=== PATIENT | male | born 1965 | race Caucasian/White ===

== ENCOUNTER 2017-01-11 09:01 | Outpatient (CLI) ==
[2016-08-31 20:38] VITALS: BMI 38.3
--- NOTE | 2017-01-11 11:35 | MAMMO ---
EXAM: Digital diagnostic mammogram and left breast ultrasound HISTORY: Left breast mass COMPARISON: None FINDINGS: MLO and CC views of the right and left breast were performed. There is trace bilateral gy necomastia. There is no evidence for mass, asymmetry, distortion, or suspicious calcifications in e ither breast. Ultrasound left breast was performed in the region of clinical concern in the left medial breast reg ion near midline. No focal sonographic abnormality is identified. No mass or cyst identified. IMPRESSION: 1. Bilateral gynecomastia. This finding is benign. 2. No mammographic evidence for malignancy in the right or left breast. Negative left breast ultra sound in the region of clinical concern. 3. Recommend clinical follow-up. BIRADS category 2, benign
== END 2017-01-11 09:02 | disposition home or self-care (01) ==
LOC: RAD 09:01
PROVIDERS: ATTEND Family Medicine
DX: N63 Unspecified lump in breast (principal)

== ENCOUNTER 2017-01-17 18:28 | Outpatient (CLI) ==
[2016-08-31 20:38] VITALS: BMI 38.3
[2017-01-17 18:58] LABS: CREATININE 0.98 mg/dL (0.60-1.10)
== END 2017-01-17 18:29 | disposition home or self-care (01) ==
LOC: LAB 18:28
PROVIDERS: ATTEND Family Medicine
DX: Z01.812 Encounter for preprocedural laboratory examination (principal)
CPT/HCPCS: 36415; 82565

== ENCOUNTER 2017-01-18 07:50 | Outpatient (CLI) ==
[2016-08-31 20:38] VITALS: BMI 38.3
--- NOTE | 2017-01-18 09:22 | CT ---
EXAM: CT of the chest with and without contrast History: Chest wall mass. Comparison: Chest radiograph 06/24/2008 Technique: Multiplanar CT images through the thorax were obtained with and without the administrati on of IV contrast Findings: Heart size is normal. No pericardial effusion. No pathologic thoracic adenopathy. A few small calcified bilateral hilar lymph nodes. No consolidation. Mild dependent atelectasis. No susp icious lung masses or lung nodules. A few tiny 2 mm bilateral lung nodules. Subtle ground-glass opa [place] within the medial right lower lobe. No chest wall masses. Within the visualized upper abdomen, fatty liver. 2 mm left renal calculus. No acute osseous abnor malities. A few prominent anterior osteophytes within the mid thoracic spine. Impression: 1. No chest wall masses. 2. Subtle ground-glass opacity within the medial right lower lobe probably represents a mild infect ious or inflammatory process. 3. Old granulomatous disease. 4. Fatty liver.
== END 2017-01-18 07:51 | disposition home or self-care (01) ==
LOC: RAD 07:50
PROVIDERS: ATTEND Family Medicine
DX: R22.2 Localized swelling, mass and lump, trunk (principal)

== ENCOUNTER 2017-02-08 08:38 | Inpatient (IN) ==
[2017-02-08] MEDS ORDERED: SODIUM CHLORIDE 1,000 ML IV STA (08:50)
[2017-02-08] MEDS ORDERED: NITROSTAT SL PRN (08:50)
--- NOTE | 2017-02-08 08:51 | ED.PDOC ---
General ED Provider: Dr. ERMELINDA KHAN JR Chief Complaint: Chest Pain Stated Complaint: CHEST TIGHTNESS. MIDSTERNAL THROUGH TO BACK [ End ]98.2 82 16 98% 125/102 03/31 mother with [place] months ago-September 2016 maternal first cousin with [place] Time Seen by Physician: 08:51 Mode of Arrival: Walk-In Information Source: Patient Exam Limitations: No limitations Primary Care Provider: HANG DAWSON Nursing and Triage Documentation Reviewed and Agree: No Review of Systems - Review Of Systems Constitutional: Reports: No symptoms Eyes: Reports: No symptoms Ears, Nose, Mouth, Throat: Reports: No symptoms Respiratory: Reports: No symptoms Cardiac: Reports: Chest pain (lest sided pressure only no pain no tenderness abdomen or infracostal area) GI: Reports: No symptoms : Reports: No symptoms Musculoskeletal: Reports: No symptoms Skin: Reports: No symptoms Neurological: Reports: No symptoms Endocrine: Reports: No symptoms Hematologic/Lymphatic: Reports: No symptoms All Other Systems: Other Past Medical History - Past Medical History Endocrine: Reports: None Cardiovascular: Reports: Hypertension Respiratory: Reports: None Hematological: Reports: None Gastrointestinal: Reports: GERD Genitourinary: Reports: None Neuro/Psych: Reports: None. Denies: Migraine Musculoskeletal: Reports: None Cancer: Reports: None Other Pertinent Past Medical History: vascectomy 2004--back surg 07/16/16 htn - Surgical History General Surgical History: Reports: Back Surgery (back surg 07/16/16 ), Other ( Vasectomy 2004 ) - Family History Family History: Reports: Unknown - Social History Smoking Status: Never smoker Hx Substance Use: No Alcohol Screening: None Physical Exam - Physical Exam Appearance: Well-appearing, Obese Pain Distress: Moderate Eyes: POLO, EOMI, Conjunctiva clear ENT: Ears normal, Nose normal, Oropharynx normal Neck: Supple Respiratory: Airway patent Cardiovascular: RRR, Pulses normal, No rub, No murmur GI/: Soft, Nontender, No masses, Bowel sounds normal, No Organomegaly Musculoskeletal: Normal strength, ROM intact, No edema, No calf tenderness Skin: Warm, Dry, Normal color Neurological: Sensation intact, Motor intact, Reflexes intact, Cranial nerves intact, Alert, Oriented Psychiatric: Affect appropriate, Mood appropriate Interpretation - Radiology Interpretation Radiology Interpretation By: Radiologist Radiology Results: Negative Exam Interpreted: CXR - EKG Interpretation Time of EKG #1: 09:00 Rate: Normal Rhythm: Sinus Ectopy: None [place]: NL ST Segment: Normal Re-Evaluation - Re-Evaluation Time of Re-Evaluation: 09:38 Status: Unchanged (headache now) Critical Care Note - Critical Care Note Total Time (mins): 0 Course - Course Hematology/Chemistry: 02/08/17 09:00 02/08/17 09:00 Orders, Labs, Meds: Lab Review 02/08/17 09:00 WBC 4.78 RBC 4.93 Hgb 13.8 L Hct 40.2 L MCV 81.5 MCH 28.0 MCHC 34.3 RDW Coeff of [place] 13.4 Plt Count 175 Immature Gran % (Auto) 0.8 Neut % (Auto) 58.9 Lymph % (Auto) 27.6 [place] % (Auto) 9.2 Eos % (Auto) 2.7 Baso % (Auto) 0.8 Immature Gran # (Auto) 0.0 Neut # 2.8 Lymph # 1.3 [place] # 0.4 Eos # 0.1 Baso # 0.0 D-Dimer 1.27 Sodium 138 Potassium 3.9 Chloride 106 Carbon Dioxide 24 Anion Gap 11.9 BUN 9 Creatinine 0.84 Estimated GFR (MDRD) 96.00 BUN/Creatinine Ratio 10.71 Glucose 114 H Calcium 8.9 Total Bilirubin 0.72 AST 15 ALT 24 Alkaline Phosphatase 103 Total Creatine Kinase 158 CK-MB (CK-2) 1.7 CK-MB (CK-2) % 1.81224 Troponin I < 0.0100 B-Natriuretic Peptide < 10 Total Protein 6.8 Albumin 3.8 Globulin 3.0 Albumin/Globulin Ratio 1.27 Orders Category Date Time Status EKG-(ED ONLY) Stat CARDIO 02/08/17 08:50 Completed ED CLINICAL MEDICAL TRANSCRIPTIONIST APPLIED .ONCE EMERGENCY 02/08/17 08:50 Active ED IV/MEDIPORT/POWERPORT .ONCE EMERGENCY 02/08/17 08:50 Active B-TYPE NATRIURETIC PEPTIDE Stat LAB 02/08/17 09:00 Completed CBC W/ AUTO DIFF Stat LAB 02/08/17 09:00 Completed COMPREHENSIVE METABOLIC PANEL Stat LAB 02/08/17 09:00 Completed CREATINE KINASE Stat LAB 02/08/17 09:00 Completed D-DIMER Stat LAB 02/08/17 09:00 Completed TROPONIN I Stat LAB 02/08/17 09:00 Completed 0.9 % Sodium Chloride [Saline Flush] MEDS 02/08/17 08:50 Active 1 syr IVF PRN PRN Acetaminophen [Tylenol] MEDS 02/08/17 09:36 Discontinued 650 mg PO ONCE STA Morphine Sulfate [Morphine 2 mg/ml Syringe] MEDS 02/08/17 09:36 Discontinued 2 mg IVP ONCE STA Nitroglycerin [Nitrostat] MEDS 02/08/17 08:50 Active 0.4 mg SL Q5MIN X 3 DOSES PRN Sodium Chloride 0.9% [Sodium Chloride] 1,000 ml MEDS 02/08/17 08:50 Active IV 100 mls/hr CHEST, 1V AP ONLY Stat RADS 02/08/17 08:50 Completed Medications Generic Name Dose Route Start Last Admin Trade Name Freq PRN Reason Stop Dose Admin Sodium Chloride 1,000 mls @ 100 mls/hr 02/08/17 08:50 02/08/17 09:49 Sodium Chloride IV 02/08/17 18:49 100 mls/hr .Q10H STA Administration Sodium Chloride 1,000 mls @ 75 mls/hr 02/08/17 11:00 Sodium Chloride IV .[id number] CARLO Nitroglycerin 0.4 mg 02/08/17 08:50 02/08/17 09:11 Nitrostat SL 0.4 mg Q5MIN X 3 DOSES PRN Administration Chest Pain Sodium Chloride 1 syr 02/08/17 08:50 Saline Flush IVF PRN PRN To flush IV Discontinued Medications Generic Name Dose Route Start Last Admin Trade Name Frealvaro PRN Reason Stop Dose Admin Acetaminophen 650 mg 02/08/17 09:36 02/08/17 09:52 Tylenol PO 02/08/17 09:37 650 mg ONCE STA Administration Morphine Sulfate 2 mg 02/08/17 09:36 02/08/17 09:49 Morphine 2 Mg/Ml Syringe IVP 02/08/17 09:37 2 mg ONCE STA Administration Pantoprazole Sodium 40 mg 02/08/17 10:45 Protonix Iv IVP 02/08/17 10:46 ONCE STA Vital Signs: Temp Pulse Resp BP Pulse Ox 02/08/17 08:45 98.2 F 82 16 125/102 H 98 VIKAS Risk Score VIKAS Risk Score: Risk Score Odds of by 30D 0 0.1 (0.1-0.2) 1 0.3 (0.2-0.3) 2 0.4 (0.3-0.5) 3 0.7 (0.6-0.9) 4 1.2 (1.0-1.5) 5 2.2 (1.9-2.6) 6 3.0 (2.5-3.6) 7 4.8 (3.8-6.1) Departure - Departure Time of Disposition: 09:52 Disposition: ADMITTED INPATIENT Discharge Problem: Chest pain Condition: Good Pt referred to PMD for follow-up: Yes Allergies/Adverse Reactions: Allergies No Known Allergies Allergy (Unverified 02/08/17 08:41) Home Medications: Ambulatory Orders Tramadol HCl [Ultram] 50 mg PO DAILY PRN 04/17/14 Lisinopril 40 mg PO d 05/29/16 Hydrocodone Bit/Acetaminophen [Knott 5-325] 1 tab PO TID PRN 08/31/16 Tizanidine HCl [Zanaflex] 2 mg PO BID PRN 08/31/16 Bumetanide 0.5 mg PO DAILY 10/05/16 Pregabalin [Lyrica] 25 mg PO BID 02/08/17
[2017-02-08 09:01] LABS: BASOPHILS % (AUTO) 0.8 % (0.0-3.0); EOSINOPHILS # (AUTO) 0.1 K/ul (0.0-0.7); EOSINOPHILS % (AUTO) 2.7 % (0.0-7.0); HEMATOCRIT 40.2 % (42.0-52.0); HEMOGLOBIN 13.8 g/dl (14.0-18.0); IMMATURE GRANULOCYTE % (AUTO) 0.8 % (0.0-5.0); LYMPHOCYTES # (AUTO) 1.3 K/uL (0.60-3.4); LYMPHOCYTES % (AUTO) 27.6 (10.0-50.0); MEAN CORPUSCULAR HGB CONC 34.3 (31.8-35.4); MEAN CORPUSCULAR VOLUME 81.5 fl (80.0-94.0); MONOCYTES # (AUTO) 0.4 K/uL (0.4-2.0); MONOCYTES % (AUTO) 9.2 (0-10); NEUTROPHILS # (AUTO) 2.8 K/ul (2.0-6.9); NEUTROPHILS % (AUTO) 58.9; PLATELET COUNT 175 10^3/uL (140-440); RED BLOOD COUNT 4.93 10^6/ul (4.70-6.10); WHITE BLOOD COUNT 4.78 K/ul (4.2-10.2)
--- NOTE | 2017-02-08 09:14 | DI ---
EXAM: Single view of the chest. History: Chest pain. Comparison: Chest CT 02/15/2017 Findings: Heart size is normal. No focal consolidation. No appreciable pleural fluid and no pneum othorax. No acute osseous abnormalities. Impression: No acute cardiopulmonary process.
[2017-02-08] MEDS ORDERED: TYLENOL PO STA (09:36)
[2017-02-08] MEDS ORDERED: MORPHINE 2 MG/ML SYRINGE IVP STA (09:36)
[2017-02-08 09:39] LABS: ALANINE AMINOTRANSFERASE 24 U/L (12-78); ALBUMIN 3.8 g/dL (3.4-5.0); ALBUMIN/GLOBULIN RATIO 1.27; ALKALINE PHOSPHATASE 103 U/L (50-136); ANION GAP 11.9; ASPARTATE AMINO TRANSFERASE 15 U/L (15-37); BILIRUBIN,TOTAL 0.72 mg/dL (0.00-1.20); BLOOD UREA NITROGEN 9 mg/dL (7-18); BUN/CREATININE RATIO 10.71; CALCIUM 8.9 mg/dL (8.2-10.2); CARBON DIOXIDE 24 mmol/L (21-32); CHLORIDE 106 mmol/L (98-107); CREATINE KINASE 158 U/L; CREATININE 0.84 mg/dL (0.60-1.10); GLUCOSE 114 mg/dL (70-100); POTASSIUM 3.9 mmol/L (3.5-5.1); SODIUM 138 mmol/L (136-145); TOTAL PROTEIN 6.8 g/dL (6.4-8.2)
[2017-02-08 09:41] LABS: CREATINE KINASE MB 1.7 ng/ml (0.0-3.6)
[2017-02-08] MEDS ORDERED: PROTONIX IV IVP STA (10:45)
[2017-02-08] MEDS ORDERED: ULTRAM PO PRN (10:52)
[2017-02-08] MEDS ORDERED: NON-FORMULARY MEDICATION (Tizanidine Hcl [Zanaflex] 2 MG) PO PRN (10:52)
[2017-02-08] MEDS ORDERED: ZANAFLEX PO PRN (11:00)
[2017-02-08] MEDS ORDERED: NON-FORMULARY MEDICATION (Lisinopril [Lisinopril] 40 MG) PO SCH (11:00)
[2017-02-08 11:10] VITALS: BMI 39.4
[2017-02-08] MEDS: ZESTRIL PO SCH (12:40)
[2017-02-08] MEDS ORDERED: TORADOL IVP STA (13:41)
[2017-02-08] MEDS ORDERED: DECADRON 4 MG/ML SDV IM STA (13:41)
[2017-02-08 14:58] LABS: CHOL/HDL RATIO 5.1 (4.5-6.4)
[2017-02-08] MEDS: SODIUM CHLORIDE 1,000 ML IV SCH ×2 (16:41→19:23)
[2017-02-08 17:24] LABS: CREATINE KINASE 138 U/L
[2017-02-08 17:27] LABS: CREATINE KINASE MB 1.6 ng/ml (0.0-3.6)
[2017-02-08] MEDS: LYRICA PO SCH (20:14)
[2017-02-08] MEDS ORDERED: NON-FORMULARY MEDICATION (Pregabalin [Lyrica] 100 MG) PO SCH (21:00)
[2017-02-08] MEDS ORDERED: NON-FORMULARY MEDICATION (Pregabalin 25 MG) PO SCH (21:00)
[2017-02-08] MEDS ORDERED: LYRICA PO SCH (21:00)
[2017-02-08] MEDS: NORCO 5-325 PO PRN (22:40)
[2017-02-09 01:28] LABS: ALBUMIN 3.6 g/dL (3.4-5.0); ALBUMIN/GLOBULIN RATIO 1.16; ANION GAP 10.2; BILIRUBIN,TOTAL 0.48 mg/dL (0.00-1.20); BUN/CREATININE RATIO 11.88; CREATININE 1.01 mg/dL (0.60-1.10); POTASSIUM 5.2 mmol/L (3.5-5.1); TOTAL PROTEIN 6.7 g/dL (6.4-8.2)
[2017-02-09 01:29] LABS: BASOPHILS # (AUTO) 0.1 K/uL (0-0.2); BASOPHILS % (AUTO) 0.8 % (0.0-3.0); HEMATOCRIT 40.5 % (42.0-52.0); HEMOGLOBIN 13.8 g/dl (14.0-18.0); IMMATURE GRANULOCYTE % (AUTO) 1.6 % (0.0-5.0); LYMPHOCYTES # (AUTO) 0.6 K/uL (0.60-3.4); LYMPHOCYTES % (AUTO) 8.7 (10.0-50.0); MEAN CORPUSCULAR HGB CONC 34.1 (31.8-35.4); MEAN CORPUSCULAR VOLUME 82.3 fl (80.0-94.0); MONOCYTES # (AUTO) 0.2 K/uL (0.4-2.0); MONOCYTES % (AUTO) 2.6 (0-10); NEUTROPHILS # (AUTO) 6.4 K/ul (2.0-6.9); NEUTROPHILS % (AUTO) 86.3; PLATELET COUNT 186 10^3/uL (140-440); RED BLOOD COUNT 4.92 10^6/ul (4.70-6.10); WHITE BLOOD COUNT 7.39 K/ul (4.2-10.2)
[2017-02-09 01:34] LABS: CREATINE KINASE 113 U/L
[2017-02-09] MEDS ORDERED: BUMEX PO SCH ×2 (06:30→09:00)
[2017-02-09] MEDS: SODIUM CHLORIDE 1,000 ML IV SCH (07:58)
[2017-02-09] MEDS: NORCO 5-325 PO PRN (07:58)
[2017-02-09] MEDS: LYRICA PO SCH (08:26)
[2017-02-09] MEDS: ZESTRIL PO SCH (08:26)
[2017-02-09] MEDS ORDERED: NON-FORMULARY MEDICATION (Bumetanide [Bumetanide] 0.5 MG) PO SCH (09:00)
[2017-02-09 09:59] VITALS: BP 117/70; TEMP 97.5
--- NOTE | 2017-02-09 13:32 | STRESSECHO ---
Date of Test: 02/09/17 Ordering Physician: HANG DAWSON Current Medications: LYRICA, ULTRAM, ZANAFLEX, LISINOPRIL, NORCO, BUMETANIDE Physical Findings: S1, S2, NO S3 Resting EKG: SINUS RHYTHM/ NO ACUTE CHANGES Target Heart Rate: 143/169 STAGE MPH/GRADE HEART RATE BPM BLOOD PRESSURE mmhg RHYTHM S-T SEGMENT +/- UP DOWN SYMPTOMS,COMMENTS At Rest 78 132/86 SR X NONE 1 1.7/10% 125 152/72 SR X NONE 2 2.5/12% 135 148/70 SR X NONE 3 3.4/14% 4 4.2/16% 5 5.0/18% Immediately after 146 S4 X SHORT OF BREATH Durations of Exercise: 6:21 Maximum Heart Rate Reached: 147 Reason for Termination: SHORT OF BREATH 5 MIN POST EXERCISES: BP 156/68 MMHG, SINUS RHYTHM, +/- INTERPRETATION: 97% OXYGEN SATURATION ON ROOM AIR WITH EXERCISE METS 8.0 1. NO EVIDENCE OF ISCHEMIA BY ST-T WAVE 2. NO CHEST PAIN OR CHEST DISCOMFORT 3. BLOOD PRESSURE RESPONSE NORMAL 4. NO ARRHYTHMIAS NORMAL LEFT VENTRICULAR CONTRACTILITY--RESTING AND POST EXERCISE MTDD
--- NOTE | 2017-02-09 13:34 | ECHOSTRESS ---
Date of Exam: 02/09/17 Ordering Physician: HANG DAWSON Reason for Echo: CHEST PAIN, STRESS TEST--NO ISCHEMIA M-Mode Normal Adult Results LV Dimensions Normal Adult Results AoV Opening excursions >1.6 LVEDD-base- 3.5-5.8 Ao root dimensions 2.0-3.7 LVESD-base- 3.1-4.6 L. Atrium dimensions 1.9-3.8 Post. Wall thickness 0.8-1.1 IV septum (thickness) 0.7-1.2 Post. Wall excursion 0.72-1.3 Septal motion Systolic motion R. Ventricular cavity 1.5-2.0 LVEF 60% Paradoxical septal wall motion 2-D: NORMAL LEFT VENTRICULAR CONTRACTILITY--RESTING AND POST EXERCISE M-MODE: MV: AV: TV: PV: CHAMBER SIZE: WALL MOTION: NORMAL LEFT VENTRICULAR CONTRACTILITY--RESTING AND POST EXERCISE PERICARDIUM: INTERPRETATION: 1. NORMAL LEFT VENTRICULAR CONTRACTILITY--RESTING AND POST EXERCISE MTDD
--- NOTE | 2017-02-10 10:24 | CONS ---
DATE OF SERVICE: 02/09/17 CONSULT FOLLOWUP DATE OF CONSULTATION: 02/09/17 REASON FOR CONSULTATION: 51-year-old white male hospitalized with chest pain, chest tightness steady for at least one week, unrelated to exertion. No other symptoms like sweating or shortness of breath. The patient also had no radiation of pain to any other part of the body. He said at times it may go to the neck, both sides. REVIEW OF SYSTEMS: CONSTITUTIONAL: No night sweats. No fatigue, malaise, lethargy. No fever or chills. HEENT: Eyes: No visual changes. No eye pain. No eye discharge. ENT: No runny nose. No epistaxis. No sinus pain. No sore throat. No odynophagia. No ear pain. No congestion. No neck pain. RESPIRATORY: No cough, no congestion. No hemoptysis. CARDIOVASCULAR: No angina symptoms. No CHF symptoms. No atypical chest pain for CAD. No palpitations. No shortness of breath. No PND, no orthopnea. GASTROINTESTINAL: No abdominal pain. No nausea or vomiting. No diarrhea or constipation. No hematemesis. No hematochezia. GENITOURINARY: No urgency. No frequency. No dysuria. No hematuria. No obstructive symptoms. No discharge. No pain. No significant abnormal bleeding. MUSCULOSKELETAL: No musculoskeletal pain. No joint swelling. NEUROLOGICAL: No headache. No neck pain. No syncope. No seizures. No dizziness. PSYCHIATRIC: Not anxious. No depression. No suicidal thoughts. No homicidal thoughts. SKIN: No rash. No lesions. No wounds. ENDOCRINE: No unexplained weight loss. No weight gain. HEMATOLOGIC/LYMPHATIC: No anemia. No purpura. No petechiae. No prolonged or excessive bleeding. No palpable lymph nodes. PHYSICAL EXAMINATION: GENERAL: The patient is oriented to time, place and person. VITAL SIGNS: Temperature 96.8, pulse 68, respiratory rate 16, BP 100/58, pulse ox 100% on room air. HEENT: Head normocephalic, atraumatic. Eyes: Extraocular muscles are intact. Pupils are equal, round and reactive to light and accommodation. Ears: No lesions. Nose appeared normal. Throat: No exudate or erythema. NECK: Supple. No JVP, no carotid bruit. No lymphadenopathy or thyromegaly. LUNGS: Decreased breath sounds. Clear to auscultation. Percussion note normal. Chest symmetrical. HEART: S1, S2, no S3. No murmurs. No cyanosis or clubbing. No ascites. Pulses: Dorsalis pedis and posterior tibial pulses +1 to +2 both sides. ABDOMEN: Soft. Nontender. Bowel sounds active. No CVA tenderness. No mass felt. EXTREMITIES: No pedal edema. Full range of motion of all extremities, equal. NEUROLOGIC: No focal deficit. Cranial nerves II through XII are grossly intact. No headache, no double vision or headache. SKIN: Not dry. Intact. Turgor - normal. LYMPHATIC: No palpable lymph nodes/no lymphedema. MUSCULOSKELETAL: Normal joints with no swelling. Muscle tone is normal. LAB DATA: Hemoglobin 13.8, hematocrit 40, WBC 7,300, normal differential. Creatinine 1, BUN 12, potassium 5.2. BNP less than 10. CK-MB negative. Troponin was initially positive. D. dimer negative. ASSESSMENT: 1. Chest pain seems to be noncardiac by etiology. The patient has several risk factors like sedentary lifestyle, morbid obesity, borderline dyslipidemia, hypertension. PLAN: The patient had an echocardiogram done which showed normal LV contractility, normal valves. The patient's stress echo on regular [place] protochol was negative for ischemia. The patient's LV contractility normal at rest and normal post exercise. CONCLUSION: The patient's chest pain seems to be noncardiac considering negative EKGs, negative cardiac markers, negative stress echo, negative echo. Telemetry strips were examined which are sinus rhythm with no ST-T wave changes. Counseling done for losing weight, keep blood pressure 130/80 or under. Followup with primary care. Non HDL goal should be 100. The patient's non HDL score is 140. Diet with weight loss, low cholesterol diet and maybe Statin, low dose, should be able to attain the goal. All copies sent to Dr. Nuñez, echo, stress echo, etc. MTDD
--- NOTE | 2017-02-10 10:38 | CONS ---
DATE OF CONSULTATION: 02/08/17 REASON FOR CONSULTATION: Chest tightness. HISTORY OF PRESENT ILLNESS: 51-year-old white male came to the emergency room with tightness of chest, duration of 7 days, more or less constant. The patient is anxious. The patient' s mother had an [place] a few months ago. Maternal first cousin with history of [place]. REVIEW OF SYSTEMS: CONSTITUTIONAL: Fatigue and weakness with anxiousness. No night sweats. No fever or chills. HEENT: Eyes: No visual changes. No eye pain. No eye discharge. ENT: No runny nose. No epistaxis. No sinus pain. No sore throat. No odynophagia. No ear pain. No congestion. RESPIRATORY: No cough, no congestion. No hemoptysis. CARDIOVASCULAR: Chest tightness, center of chest, unrelated to exertion more or less constant. Duration 7 days. No PND, no orthopnea. GASTROINTESTINAL: No abdominal pain. No nausea or vomiting. No diarrhea or constipation. No hematemesis. No hematochezia. GENITOURINARY: No urgency. No frequency. No dysuria. No hematuria. No obstructive symptoms. No discharge. No pain. No significant abnormal bleeding. MUSCULOSKELETAL: No musculoskeletal pain. No joint swelling. NEUROLOGICAL: No headache. No neck pain. No syncope. No seizures. No dizziness. PSYCHIATRIC: Not anxious. No depression. No suicidal thoughts. No homicidal thoughts. SKIN: No rash. No lesions. No wounds. ENDOCRINE: No unexplained weight loss. No weight gain. HEMATOLOGIC/LYMPHATIC: No anemia. No purpura. No petechiae. No prolonged or excessive bleeding. No palpable lymph nodes. MEDICATIONS: Tramadol Lisinopril Hydrocodone Zanaflex Bumex Lyrica ALLERGIES: NKDA PAST MEDICAL/SURGICAL HISTORY: Hypertension DJD spine status post surgery Neuropathy BMI 39, almost morbid obesity SOCIAL/PERSONAL/FAMILY HISTORY: The patient is , lives with . Nonsmoker. No alcohol abuse. PHYSICAL EXAMINATION: GENERAL: The patient is oriented to time, place and person. VITAL SIGNS: Temperature 98, pulse 68, respiratory rate 20, BP 125/100, pulse ox 96%. HEENT: Head normocephalic, atraumatic. Eyes: Extraocular muscles are intact. Pupils are equal, round and reactive to light and accommodation. Ears: No lesions. Nose appeared normal. Throat: No exudate or erythema. NECK: Supple. No JVP, no carotid bruit. No lymphadenopathy or thyromegaly. LUNGS: Clear to auscultation. Percussion note normal. Chest symmetrical. HEART: S1, S2, no S3. No murmurs. No cyanosis or clubbing. No ascites. Pulses: Dorsalis pedis and posterior tibial pulses +1 to +2 both sides. ABDOMEN: Soft. Nontender. Bowel sounds active. No CVA tenderness. No mass felt. No ascites. EXTREMITIES: No pedal edema. No clubbing, no cyanosis. Full range of motion of all extremities, equal. NEUROLOGIC: No focal deficit. Cranial nerves II through XII are grossly intact. No headache, no double vision or headache. SKIN: Not dry. Intact. Turgor - normal. LYMPHATIC: No palpable lymph nodes/no lymphedema. MUSCULOSKELETAL: Normal joints with no swelling. Muscle tone is normal. EKG sinus rhythm. No acute changes. Telemetry sinus rhythm. No ST-T wave changes. ASSESSMENT: 1. CHEST PAIN, CHEST TIGHTNESS WITH RISK FACTORS OF OBESITY AND SEDENTARY LIFESTYLE, HYPERTENSION AND DYSLIPIDEMIA. THE PATIENT'S NON HDL CALCULATED IS APPROXIMATELY 140, WHICH WAS DONE TODAY. RECOMMENDATION: 1. Modification of CAD risk factors. 2. Discussed ASHD in detail. 3. Weight reducing diet discussed. 4. Will do echocardiogram. 5. Stress echo. 6. Blood pressure goal 135/85 or less. 7. DASH diet discussed. 8. I agree with present management with serial EKGs, cardiac markers. CONDITION: Stable. Thanks for the referral, will follow. MARTINE
--- NOTE | 2017-02-11 09:13 | ECHO2D ---
Date of Exam: 02/09/2017 Ordering Physician: DR. DAWSON Reason for Echo: CHEST TIGHTNESS M-Mode Normal Adult Results LV Dimensions Normal Adult Results AoV Opening excursions >1.6 >1.6 LVEDD-base- 3.5-5.8 4.9 Ao root dimensions 2.0-3.7 3.5 LVESD-base- 3.1-4.6 L. Atrium dimensions 1.9-3.8 3.8 Post. Wall thickness 0.8-1.1 1.1 IV septum (thickness) 0.7-1.2 1.1 Post. Wall excursion 0.72-1.3 NORMAL Septal motion NORMAL Systolic motion R. Ventricular cavity 1.5-2.0 NORMAL LVEF 60% 59% Paradoxical septal wall motion NORMAL 2-D :2-D M Mode Echocardiogram was performed using apical four chamber and left parasternal long and short axis views. Mitral, tricuspid and aortic valves appear to be normal. Contractility of the left ventricle seems to be normal, so is the cavity size. Left atrial cavity size and aortic root appear to be normal. There is no pericardial effusion. There is no thrombus noted in the left ventricular or left aortic cavity. No mitral valve prolapse noted. M-MODE: MV: NORMAL AV: NORMAL TV: NORMAL PV: CHAMBER SIZE: NORMAL WALL MOTION: NORMAL PERICARDIUM: NORMAL INTERPRETATION: 1. NORMAL 2D M MODE ECHOCARDIOGRAM MTDD
--- NOTE | 2017-03-18 09:28 | SSS ---
PRINCIPAL DIAGNOSIS: 1. Chest pain- noncardiac 2. Hypertension 3. Chronic back pain Principal procedure; stress echo consult Dr. Felix DISCUSSION: This is a 51 year old gentleman who presented to the emergency department with chest tightness. He has had chest tightness for few days, he has been under a lot of stress at work and dealing with a difficult co-worker and present with the above history. His initial EKG and cardiac enzymes were were unrevealing however because of risk factors the patient was admitted and we consulted Dr. Felix for cardiac evaluation. MEDICATIONS: Ultram Lisinopril [place] Zanaflex Bumex Lyrica ALLERGIES: No know drug allergies. PAST MEDICAL HISTORY: History of low back pain History of hypertension SURGICAL HISTORY: History of back surgery in June 2016 History of Vasectomy SOCIAL HISTORY: He is with two children. No history of alcohol or tobacco use as noted. FAMILY HISTORY: Unknown REVIEW OF SYSTEMS: No headaches, visual changes, tinnitus, hemoptysis, abdominal pain, blood in the stool, urinary symptoms or seizures. PHYSICAL EXAMINATION: VITAL SIGNS: Temperature 96.8, pulse 68 , respirations 16 and blood pressure 98/ 58. HEENT: Pupils are round. NECK: Supple. CHEST: Clear. CARDIOVASCULAR: Regular rate and rhythm. ABDOMEN: Soft, nontender. EXTREMITIES: Distal extremities without cyanosis or edema. CLINICAL COURSE: The patient was admitted to to services and again cardiac enzymes and EKG's were unrevealing. He was very kindly seen by Dr. Felix. Subsequent stress echo was unrevealing for ischemia at this point his chest pain was thought to be noncardiac and he was subsequently discharged. We are going to follow him up in the office. MARTINE
== END 2017-02-09 15:40 | disposition home or self-care (01) | DRG 313 ==
LOC: ED 08:38 → MEDSURG A 10:28
PROVIDERS: ADMIT Family Medicine; ATTEND Family Medicine
DX: R07.89 Other chest pain (principal); I10 Essential (primary) hypertension; E66.9 Obesity, unspecified; G89.29 Other chronic pain; M54.9 Dorsalgia, unspecified; K21.9 Gastro-esophageal reflux disease without esophagitis; Z82.49 Family history of ischemic heart disease and other diseases of the circulatory system; Z56.6 Other physical and mental strain related to work; Z72.3 Lack of physical exercise; Z79.899 Other long term (current) drug therapy
CPT/HCPCS: 36415; 80053; 80061; 82550; 82553; 83880; 84439; 84443; 84484; 85025; 85379; 93005; 93010; 96361; 96374; 96375; 99284

== ENCOUNTER 2017-03-01 12:37 | Outpatient (CLI) ==
--- NOTE | 2017-03-01 13:56 | CT ---
Exam: CT imaging of the lumbar spine without intravenous contrast administration. Comparison: 11/17/2016. Reason for exam: Arthrodesis, DDD FINDINGS: Pedicle screw and harjit construct with intervertebral body graft spacer is seen spanning L5 -S1 with decompressive laminectomy. There is no evidence of hardware complication or graft extrusion. Multilevel degenerative disc disease is seen throughout the lumbar spine with anterior osteophyte fo rmation. There is maintenance of the lumbar lordotic curve. T11-T12: Small broad-based disc bulge without significant impression on the thecal sac or foraminal narrowing. T12 - L1: Anterior osteophyte formation without significant disc bulge or foraminal narrowing. L1-L2: Anterior osteophyte formation without significant disc bulge or foraminal narrowing. L2-L3: Broad-based disc bulge without significant impression on the thecal sac. There is mild bila teral foraminal narrowing secondary to the disc protrusion. L3-L4: Broad-based, partially calcified disc bulge with minimal impression on the thecal sac and mi ld narrowing of the central canal with moderate foraminal narrowing secondary to a combination of ca lcified disc material and facet hypertrophy. L4-L5: Broad-based disc bulge without significant impression on the thecal sac or foraminal narrowi ng. L5-S1: Pedicle screw and harjit construct with intervertebral body graft spacer and decompressive lami nectomy. Images at this level are not well evaluated secondary to metallic artifact. Impression: 1. Operative changes after pedicle screw and harjit fixation with intervertebral body graft spacer at L 5-S1. No evidence of hardware complication. 2. Multilevel degenerative disc disease. 3. No new fracture or listhesis.
== END 2017-03-01 12:38 | disposition home or self-care (01) ==
LOC: RAD 12:37
PROVIDERS: ATTEND Neurological Surgery
DX: M51.36 Other intervertebral disc degeneration, lumbar region (principal); Z98.1 Arthrodesis status

== ENCOUNTER 2017-03-23 07:57 | Outpatient (CLI) ==
--- NOTE | 2017-03-23 09:53 | MRI ---
EXAM: Brain MRI without contrast. HISTORY: Memory impairment. COMPARISON: Head CT 03/06/2016. TECHNIQUE: Multiplanar, multisequence MR images were acquired of the brain without contrast. FINDINGS: The midline structures are central and the craniocervical junction is unremarkable. The v entricles and sulci are mildly prominent compatible with age related involutional changes. There ar e no abnormal extra-axial fluid collections. The brain parenchyma has no diffusion restriction to suggest acute hypoperfusion or infarction. The re is a 3 mm T2 hyperintensity in the left frontal periventricular white matter oriented tangential to the lateral ventricle. A small 3.7 mm focal T2 hyperintensity is present in the right frontal per iventricular white matter and there are possible punctate T2 / FLAIR hyperintensities in the left fr ontal subcortical white matter and bilateral occipital subcortical white matter. Pulsation artifact is present. These findings are consistent with minimal leukomalacia which is nonspecific. There i s no abnormal dark gradient echo signal to suggest hemosiderin staining. The corpus callosum is nor mal in configuration. The sella is mildly expanded and the pituitary gland is small and flattened a nteriorly consistent with a mostly empty sella. There are no intraorbital masses. The frontal sinus is hypoplastic. There is minor mucosal thicken ing in the ethmoid air cells and a small left nasal septal spur. Middle ears and mastoids are unrem arkable. Flow voids are present in the major intracranial arteries and dural venous sinuses. IMPRESSION: 1. Age related involutional changes and minimal leukomalacia which is nonspecific. 2. No intracranial mass, hemorrhage or acute cerebral infarct.
== END 2017-03-23 07:58 | disposition home or self-care (01) ==
LOC: RAD 07:57
PROVIDERS: ATTEND Neurological Surgery
DX: R41.3 Other amnesia (principal)

== ENCOUNTER → 2017-05-11 | Outpatient (POV) | LOC: OUTPT 00:01 | PROVIDERS: ATTEND Otolaryngology | DX: H69.90 Unspecified Eustachian tube disorder, unspecified ear (principal) | CPT/HCPCS: 92557; 92567 ==

== ENCOUNTER 2017-09-01 16:42 | Outpatient (CLI) ==
--- NOTE | 2017-09-02 07:54 | DI ---
EXAM: Radiographs, cervical spine HISTORY: Neck pain. COMPARISON: 11/07/2014. TECHNIQUE: Four views. FINDINGS: There is less than 0.2 cm retrolisthesis of C3 on C4 and C5 on C6. Vertebral body heights are maintained. There is mild loss of disc height in the zpm-dt-vpvve cervical spine. Anterior ost eophyte formation is bulky at C5-6 and more moderate elsewhere. Posterior endplate osteophyte format ion seen at multiple levels. Uncovertebral hypertrophy and facet arthropathy noted, moderate in degr ee. No fracture identified. Prevertebral soft tissues are unremarkable. The lung apices are clear. IMPRESSION: 1. Moderate multilevel degenerative changes. 2. Bulky anterior osteophyte formation at C5-6 which could contribute to dysphagia.
--- NOTE | 2017-09-02 07:54 | DI ---
EXAM: RIGHT SHOULDER HISTORY: Shoulder pain FINDINGS: Right shoulder three-view. Bone and joint structures are within normal limits. There is no joint dislocation or fracture identified. Bone density and soft tissues are unremarkable. IMPRESSION: Within normal limits.
== END 2017-09-01 16:43 | disposition home or self-care (01) ==
LOC: RAD 16:42
PROVIDERS: ATTEND Emergency Medicine
DX: M54.2 Cervicalgia (principal); M25.511 Pain in right shoulder; R10.84 Generalized abdominal pain; R11.2 Nausea with vomiting, unspecified

== ENCOUNTER 2017-12-02 14:25 | Outpatient (CLI) | END 2017-12-02 14:26 | disposition home or self-care (01) | LOC: LAB 14:25 | PROVIDERS: ATTEND Family Medicine | DX: R07.9 Chest pain, unspecified (principal) | CPT/HCPCS: 36415; 82550; 82553; 84484; 93005; 93010 ==

== ENCOUNTER 2017-12-03 06:57 | Outpatient (CLI) ==
--- NOTE | 2017-12-06 13:59 | ECHOSTRESS ---
Date of Exam: 12/03/17 Ordering Physician: DR. HANG DAWSON Reason for Echo: CHEST PAIN, STRESS TEST--NO ISCHEMIA M-Mode Normal Adult Results LV Dimensions Normal Adult Results AoV Opening excursions >1.6 LVEDD-base- 3.5-5.8 Ao root dimensions 2.0-3.7 LVESD-base- 3.1-4.6 L. Atrium dimensions 1.9-3.8 Post. Wall thickness 0.8-1.1 IV septum (thickness) 0.7-1.2 Post. Wall excursion 0.72-1.3 Septal motion Systolic motion R. Ventricular cavity 1.5-2.0 LVEF 60% Paradoxical septal wall motion 2-D: NORMAL LEFT VENTRICULAR CONTRACTILITY--RESTING AND POST EXERCISE M-MODE: MV: AV: TV: PV: CHAMBER SIZE: WALL MOTION: NORMAL LEFT VENTRICULAR CONTRACTILITY--RESTING AND POST EXERCISE PERICARDIUM: INTERPRETATION: 1. NORMAL LEFT VENTRICULAR CONTRACTILITY--RESTING AND POST EXERCISE MTDD
--- NOTE | 2017-12-06 14:13 | STRESSECHO ---
Date of Test: 12/03/17 Reason for Exam: CHEST PAIN, HYPERTENSION Ordering Physician: DR. HANG DAWSON Current Medications: BUMEX, LYRICA, ULTRAM, ZANAFLEX, LISINOPRIL Physical Findings: S1, S2, NO S3 Resting EKG: SINUS RHYTHM/ NO ACUTE CHANGES Target Heart Rate: 142/168 STAGE MPH/GRADE HEART RATE BPM BLOOD PRESSURE mmhg RHYTHM S-T SEGMENT +/- UP DOWN SYMPTOMS,COMMENTS At Rest 70 130/78 SR X NONE 1 1.7/10% 116 148/70 SR X NONE 2 2.5/12% 133 152/80 SR X NONE 3 3.4/14% 4 4.2/16% 5 5.0/18% Immediately after 143 SR X FATIGUE Durations of Exercise: 7:00 Maximum Heart Rate Reached: 143 Reason for Termination: FATIGUE 4 MINUTES POST EXERCISE: HR 88 BPM, BP 150/88 MMHG, SR, +/-, NO COMMENTS INTERPRETATION: 97% OXYGEN SATURATION WITH EXERCISE ON ROOM AIR METS 10.1 1. NO EVIDENCE OF ISCHEMIA BY ST-T WAVE 2. NO CHEST PAIN OR CHEST DISCOMFORT 3. BLOOD PRESSURE RESPONSE NORMAL 4. NO ARRHYTHMIAS NORMAL LEFT VENTRICULAR CONTRACTILITY--RESTING AND POST EXERCISE MTDD
== END 2017-12-03 06:58 | disposition home or self-care (01) ==
LOC: CAR 06:57
PROVIDERS: ATTEND Family Medicine
DX: R07.9 Chest pain, unspecified (principal)

== ENCOUNTER 2018-03-09 09:37 | Outpatient (CLI) | END 2018-03-09 09:38 | disposition home or self-care (01) | LOC: LAB 09:37 | PROVIDERS: ATTEND Psychiatry & Neurology Clinical Neurophysiology | DX: M79.661 Pain in right lower leg (principal); M79.662 Pain in left lower leg; M79.621 Pain in right upper arm; M79.622 Pain in left upper arm; M54.2 Cervicalgia; M54.5 Low back pain | CPT/HCPCS: 36415; 82175; 82390; 82525; 82607; 83655; 83825; 84165; 84439; 84443; 85651; 86235; 86430; 86617; 86788; 86789 ==

== ENCOUNTER 2019-01-02 20:20 | Emergency (ER) ==
[2019-01-02 20:24] VITALS: BP 147/91; TEMP 99.4; BMI 35.2
--- NOTE | 2019-01-02 21:02 | ED.PDOC ---
General ED Provider: Dr. HANG DAWSON-ER Chief Complaint: Respiratory Complaint Stated Complaint: i got myalgias, fever , cough Time Seen by Physician: 20:25 Mode of Arrival: Walk-In Information Source: Patient Exam Limitations: No limitations Primary Care Provider: HANG DAWSON Nursing and Triage Documentation Reviewed and Agree: Yes Does patient meet sepsis criteria?: No System Inflammatory Response Syndrome: Not Applicable Sepsis Protocol: For patient's 13 years and over: Temp is 96.8 and below OR 101 and greater Pulse >90 BPM Resp >20/minute Acutely Altered Mental Status Are patient's symptoms suggestive of a new infection, such as: -Pneumonia -Skin, Soft Tissue -Endocarditis -UTI -Bone, Joint Infection -Implantable Device -Acute Abdominal Infection -Wound Infection -Meningitis -Blood Stream Catheter Infection -Unknown Respiratory Complaint Exam - Respiratory Complaint/Exam Onset/Duration: 2 days Symptoms Are: Still present Timing: Intermittent Initial Severity: Mild Current Severity: Moderate Location: Chest Character: Reports: Productive cough Aggravating: Reports: URI Associated Signs and Symptoms: Reports: Fever, URI, Nasal congestion, Sore throat Status Asthmaticus Risk Factors: Reports: None Home Oxygen Use: No Recent Stress Test: No Recent Echo/LV Function: No Current Antibiotic Use: No Current Asthma Medication Use: No Respiratory Distress: None Inadequate Respiratory Effort: No Dysphagia Present: No Stridor Present: No JVD Present: No Accessory Muscle Use: No Retractions: Not Present Diminished Breath Sounds: No Sinus Tenderness: Maxillary Grunting Respirations: No Kussmaul Respirations: No Differential Diagnoses: Bronchitis, Influenza Review of Systems - Review Of Systems Constitutional: Reports: Chills, Fever, Weakness Eyes: Reports: No symptoms Ears, Nose, Mouth, Throat: Reports: Nose discharge, Throat pain Respiratory: Reports: Cough Cardiac: Reports: No symptoms GI: Reports: No symptoms : Reports: No symptoms Musculoskeletal: Reports: No symptoms Skin: Reports: No symptoms Neurological: Reports: No symptoms Endocrine: Reports: No symptoms Hematologic/Lymphatic: Reports: No symptoms All Other Systems: Reviewed and Negative Past Medical History - Past Medical History Previously Healthy: Yes Endocrine: Reports: None Cardiovascular: Reports: Hypertension Respiratory: Reports: None Hematological: Reports: None Gastrointestinal: Reports: GERD Genitourinary: Reports: None Neuro/Psych: Reports: None. Denies: Migraine Musculoskeletal: Reports: None Cancer: Reports: None Other Pertinent Past Medical History: vascectomy 2004--back surg 07/16/16 htn - Surgical History General Surgical History: Reports: Back Surgery, Other - Family History Family History: Reports: Unknown - Social History Smoking Status: Never smoker Hx Substance Use: No Alcohol Screening: None - Immunizations Tetanus Shot up to Date: Yes Physical Exam - Physical Exam Appearance: Well-appearing, No pain distress, Well-nourished Eyes: POLO, EOMI, Conjunctiva clear ENT: Rhinorrhea Neck: Supple Respiratory: Rhonchi Cardiovascular: RRR GI/: Soft Musculoskeletal: Normal strength, ROM intact, No edema, No calf tenderness Skin: Warm, Dry, Normal color Neurological: Sensation intact, Motor intact, Reflexes intact, Cranial nerves intact, Alert, Oriented Psychiatric: Affect appropriate, Mood appropriate Critical Care Note - Critical Care Note Total Time (mins): 0 Course - Course Orders, Labs, Meds: Lab Review 01/02/19 20:31 Influ A Molecular Assay Positive by naat H Influ B Molecular Assay Negative by naat Orders Category Date Time Status FLU A/B MOLECULAR Stat LAB 01/02/19 20:31 Completed MOLECULAR GROUP A STREP Stat LAB 01/02/19 20:31 Completed Vital Signs: Temp Pulse Resp BP Pulse Ox 01/02/19 20:21 99.4 F 102 H 16 147/91 H 96 Departure - Departure Time of Disposition: 21:02 Disposition: HOME SELF-CARE Discharge Problem: Influenza A Sinusitis Qualifiers: Sinusitis location: unspecified location Chronicity: acute Recurrence: non- recurrent Qualified Code(s): J01.90 - Acute sinusitis, unspecified Instructions: Influenza (ED) Condition: Good Pt referred to PMD for follow-up: Yes IPMP verified?: No Additional Instructions: zpack, phenergan with codeine 1 tsp q 6hrs prn cough 125cc---fluids...rest--- tylenol or motrin for pain/temp---recheck in 72hrs if not improved Allergies/Adverse Reactions: Allergies amoxicillin Allergy (Mild, Verified 01/02/19 20:24) Diarrhea Home Medications: Ambulatory Orders Lisinopril 40 mg PO d 05/29/16 Disposition Discussed With: Patient
== END 2019-01-02 21:10 | disposition home or self-care (01) ==
LOC: ED 20:20
DX: J11.1 Influenza due to unidentified influenza virus with other respiratory manifestations (principal); J01.90 Acute sinusitis, unspecified
CPT/HCPCS: 87502; 87651; 99282

== ENCOUNTER 2019-07-07 07:21 | Outpatient (CLI) ==
[2019-06-01 12:29] VITALS: BMI 36.8
--- NOTE | 2019-07-07 09:56 | DI ---
Exam: Three views of the sternoclavicular joints. Reason for exam: Sternal pain. Comparison: CT chest performed 01/18/2017. FINDINGS: No acute fracture or malalignment. The sternoclavicular joint spaces appear symmetric. I mage interpretation is limited by summation artifact. 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 Impression: Limited evaluation secondary to summation artifact without obvious fracture seen in the sternoclavicu lar region. If clinical suspicion exists, CT imaging may be performed for further characterization.
== END 2019-07-07 07:22 | disposition home or self-care (01) ==
LOC: RAD 07:21
PROVIDERS: ATTEND Family Medicine
DX: R07.89 Other chest pain (principal); I10 Essential (primary) hypertension; K62.5 Hemorrhage of anus and rectum
CPT/HCPCS: 36415; 80053; 80061; 82272; 83036; 84443; 85025

== ENCOUNTER 2019-07-07 13:24 | Outpatient (CLI) ==
[2019-06-01 12:29] VITALS: BMI 36.8
== END 2019-07-07 13:25 | disposition home or self-care (01) ==
LOC: RHC-LAB 13:24 → FCC-LAB 13:25
PROVIDERS: ATTEND Family Medicine
DX: K62.5 Hemorrhage of anus and rectum (principal)
CPT/HCPCS: 82272

== ENCOUNTER 2019-07-17 10:29 | Outpatient (CLI) ==
[2019-06-01 12:29] VITALS: BMI 36.8
== END 2019-07-17 10:30 | disposition home or self-care (01) ==
LOC: LAB 10:29
PROVIDERS: ATTEND General Practice
DX: Z77.21 Contact with and (suspected) exposure to potentially hazardous body fluids (principal)
CPT/HCPCS: 36415

== ENCOUNTER 2019-07-17 15:00 | Outpatient (RCR) | payer OTHER ==
[2019-06-01 12:29] VITALS: BMI 36.8
--- NOTE | 2019-06-23 14:32 | RS.OPPTEV2 ---
Date of Note: 06/22/19 Visit #: 1 Number of visits approved by Insurance: 20 per year Date of Evaluation: 06/22/19 Payer Source: Insurance Treatment Diagnosis: Right hip pain History of Condition/Mechanism of Injury:: Bennie reports a history of discomfort to the right side of low back since his lumbar fusion three years ago. States he had a significant increase in pain approximately a month ago. States a week ago he could hardly walk due to intense, grabbing pain. Prior Level of Function.....Patient was independent with: ADL's, Self Care, Work /Vocation, Caregiving, Ambulation/Mobility, Community Integration/Access Functional Limitations: Sleep, Self Care, ADL's, Reaching, Pushing, Pulling, Lifting, Carrying, Sitting, Standing, Bending, Squatting, Ambulation Current Subjective/complaints:: Bennie states his pain has eased some, but he still has pain with weight bearing on the right LE. 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 States his job at [employer] is more physical, requiring constant standing, walking, reaching, and sporadic lifting and carrying of heavy items. He is off work for [employer] until Wednesday. He continues to work at the clinic, which he is able to sit and avoid prolonged standing. Reports pain into the right buttock area and hip. Reports difficulty laying on the right side due to hip pain. Denies symptoms into the left LE. States he tolerates sitting well, but when he stands up he has increased pain and right leg feels like it will give out. States pain is constant at this time. Treatment Side (optional): Right Medical History Medical History: Hypertension Surgical History Comments:: Lumbar fusion L5-S1 2016 Smoking Status: Never smoker Hx Home Medications: Cymbalta,HCTZ, Lyrica, Ultram, Mobic Patient's Goals: His goal is to get relief of right hip pain. Pain Assessment - Pain Description Pain Location: right hip and PSIS area Current Pain Intensity: 5/10 Worst Pain Intensity: 10/10 Functional Outcome Measure LE Functional Scale: 38 (38/80=52.5% impairment) - G Codes & Severity Modifier G Codes & Modifier: NA Source of G Code score: NA Observation - Observation Posture: Forward Head, Rounded Shoulders, Decreased Lumbar Lordosis, Scoliosis Gait - Gait Pattern Gait Comments: Patient ambulates independently without an assisitive device. Demonstrates decreased stance phase on right LE, with cautious gait. - ROM Comments: Lumbar AROM: Flexion WFL's with reports of increased pain in the right hip. Extension ~ 10-20 degree beyond neutral, patient reports increased pain in the center of low back and into the left side. Bilateral lateral flexion with reports of no increased pain. Lower trunk rotation 75% of normal range. - Strength Trunk Lateral Flexion: 4+ Good + Trunk Rotation: 4+ Good + Comments: 5/5 throughout bilateral LE's. - Special Tests SEEMA Test: Negative Left, Positive Right SLR Test: Negative Left, Negative Right Seated Dural Stretch Test: Negative Left, Negative Right Comments: Long Middle [place] Distraction Negative, Compression of right hip joint Negative, Scour test Right hip Negative. Palpation Comments:: Patient demonstrates moderate increased muscle tone along bilateral lumbar paraspinals. Denies pain with Central PA's to lumbar vertebrae. Reports tenderness over right SI joint and superior gluteals. Denies tenderness over the left SI joint. Reports tenderness with palpation over the right Greater Trochanter. Denies tenderness along the right TFL or ITB. Sensation - Sensation Comments: Reports neuropathy in both feet. Describes as numbness in toes and palmar aspect of both feet. Otherwise, reports sensation intact to light touch and deep pressure bilaterally. Additional Comments: Additional Comments: SLR in supine: right 35 degrees, left 50 degrees. Right hip generally less flexible than the left into flexion, ER, and IR. - Treatment Modality: Ultrasound Parameters/Method Applied: X 8 mins to right SI joint @ 1.5 w/cm2 continous, then 4 mins pulsed at 1.0 w/cm2. Then 10 mins pulsed to right greater trochanter at 1.0 w/cm2. Patient Position: Left Sidelying Interventions - Exercise/Activities/Manual Therapy Exercises/Activities: Patient instructed in HS stretch. Advised that we would wait on any ITB stretching to avoid provoking any further irritation of right SI joint. Advised Bennie that it would beneficial to him if he could avoid any heavy lifting for at least another week. Manual Therapy: NA HOME EXERCISE PROGRAM: HS stretch - Charges Timed Code Treatment Minutes: 22 mins Total Treatment Time: 55 mins Procedures billed for this date of service:: CORNELIUS Roland, US EVALUATION COMPLEXITY LEVEL EVALUATION COMPLEXITY LEVEL: HISTORY: Low, EXAM OF BODY SYSTEMS: Low, CLINICAL PRESENTATION: Low, CLINICAL DECISION MAKING: Low Assessment Assessment: Patient presents to therapy with a diagnosis of right hip pain. He reports pain with weight bearing on the right LE, prolonged standing, and when getting up from sitting. He reports pain into the right buttock and at the right hip joint. Tenderness is found over the right SI joint and Greater Trochanter. Muscle guarding is noted along the lumbar paraspinals. He demonstrates asymmetry of LE flexibilty. He exhibits potential to benefit from modalities to the right SI and right hip joint to reduce inflammation ,and stretching to balance LE flexibility and reduce friction on the right Greater Trochanteric bursa. Patient Education: Education of diagnosis, Body/Joint mechanics, Home Exercise Program, Activity Modification, Education of Plan of Care Rehab Potential: Good Short Term Goals Goal #1: Patient independent and compliant in basic HEP. Goal to be met by: 07/03/19 Goal #2: Right Greater Trochanter tenderness decreased to minimal. Goal to be met by: 07/03/19 Goal #3: Right SLR to 45-50 degrees. Goal to be met by: 07/03/19 Goal #4: Pt to report minimal right hip pain with sit to stand transfers. Goal to be met by: 07/03/19 [facility] Goals Goal #1: Pt to demo. good understanding of proper body mechanics/back safety. Goal to be met by: 08/02/19 Goal #2: Score on LE functional scale improved to 60/80. Goal to be met by: 08/02/19 Goal #3: Pt to sleep without interruption from right hip pain. Goal to be met by: 08/02/19 Goal #4: Pt able to perform all household and work activities without pain. Goal to be met by: 08/02/19 Plan - Treatment to be Provided Procedures: Therapeutic Exercises, Therapeutic Activity, Manual Therapy, Patient Education Modalities: Electrical Stimulation, Ultrasound/Phonophoresis, Class IV Laser, Cryotherapy, Hot Packs - Treatment Plan Frequency: 2-3 X week Duration: 4 weeks Dates of [facility] Goals: 08/02/19 Expiration date of current Insurance Approval:: NA - Treatment Code (1) Hip pain Code(s): M25.559 - PAIN IN UNSPECIFIED HIP Qualifiers: Laterality: right Qualified Code(s): M25.551 - Pain in right hip (2) SI (sacroiliac) joint dysfunction Code(s): M53.3 - SACROCOCCYGEAL DISORDERS, NOT ELSEWHERE CLASSIFIED Comments: M53.3
--- NOTE | 2019-06-23 16:28 | RS.OPPTDN ---
Subjective Date of Note: 06/23/19 Visit #: 2 Number of visits approved by Insurance: na Date of Evaluation: 06/22/19 Payer Source: Insurance Treatment Diagnosis: Right hip pain Current Subjective/complaints:: Patient reports last treatment aggravated his right hip pain. States he is working on HEP, of stretching, as instructed. Pain Assessment - Pain Description Pain Location: right S-I, glut, and lateral hip joint Current Pain Intensity: mod - Treatment Modality: Ultrasound Parameters/Method Applied: 22mins total. US at 1.5w/cm2 at 50% pulsed setting, 10mins to right LB and S-I joint, then 10mins to the right lat hip joint, and last 2mins at continuous setting along the piriformis. Patient Position: Left Sidelying Interventions - Exercise/Activities/Manual Therapy Exercises/Activities: Patient instructed in HS stretch, SKTC, and limited piriformis stretch. Isometric hip add with pillow, isometric hip abd with glut and abdominal sets, the pelvic tilt. Discussed patient attempting modified bridging if it does not increase pain. Total minutes of Exercise: 12mins Manual Therapy: NA HOME EXERCISE PROGRAM: HS stretch, isometric hip add, glut sets, pelvic tilt, modified bridging. - Charges Timed Code Treatment Minutes: 34mins Total Treatment Time: 36mins Procedures billed for this date of service:: US, EX Assessment: Patient with jpain that is limiting his sleep, but reports good response to treatment today. He is motivated to work on HEP. Patient Education: Home Exercise Program Patient demonstrates compliance with HEP?: Yes Short Term Goals Goal #1: Patient independent and compliant in basic HEP. Goal to be met by: 07/03/19 Progress towards Goal:: Progressing Goal #2: Right Greater Trochanter tenderness decreased to minimal. Goal to be met by: 07/03/19 Goal #3: Right SLR to 45-50 degrees. Goal to be met by: 07/03/19 Progress towards Goal:: Progressing Goal #4: Pt to report minimal right hip pain with sit to stand transfers. Goal to be met by: 07/03/19 [employer] Goals Goal #1: Pt to demo. good understanding of proper body mechanics/back safety. Goal to be met by: 08/02/19 Goal #2: Score on LE functional scale improved to 60/80. Goal to be met by: 08/02/19 Goal #3: Pt to sleep without interruption from right hip pain. Goal to be met by: 08/02/19 Goal #4: Pt able to perform all household and work activities without pain. Goal to be met by: 08/02/19 Plan Dates of [employer] Goals: 08/02/19 Expiration date of current Insurance Approval:: 08/02/19 PLAN: Continue modalities and exercise to reduce pain and increase functional activity level.
--- NOTE | 2019-06-29 14:34 | RS.OPPTDN ---
Subjective Date of Note: 06/28/19 Visit #: 3 Number of visits approved by Insurance: na Date of Evaluation: 06/22/19 Payer Source: Insurance Treatment Diagnosis: Right hip pain Current Subjective/complaints:: Patient reports significant reduction in right lateral hip pain following last session. States he is working on gentle stretching program. Pain Assessment - Pain Description Pain Location: right lateral hip joint, medial glut at piriformis insertion. Current Pain Intensity: 5/10 - Treatment Modality: Ultrasound Parameters/Method Applied: [id number] at 1.5w/cm2, 50% pulsed, to the right lumbar paraspinals, right mid glut, and lateral right hip. Patient Position: Left Sidelying Interventions - Exercise/Activities/Manual Therapy Exercises/Activities: Patient instructed in HS stretch, SKTC, and limited piriformis stretch. Isometric hip add with pillow, isometric hip abd with glut and abdominal sets, the pelvic tilt. Began modified bridging, with patient reporting mild discomfort with lowering pelvis to table. Total minutes of Exercise: 18mins Manual Therapy: NA HOME EXERCISE PROGRAM: HS stretch, isometric hip add, glut sets, pelvic tilt, modified bridging. - Charges Timed Code Treatment Minutes: 34mins Total Treatment Time: 40mins Procedures billed for this date of service:: US, EX Assessment: Patient responding to treatment with reports of reduction in pain. Patient Education: Body/Joint mechanics, Home Exercise Program Patient demonstrates compliance with HEP?: Yes Short Term Goals Goal #1: Patient independent and compliant in basic HEP. Goal to be met by: 07/03/19 Progress towards Goal:: Partially Met Goal #2: Right Greater Trochanter tenderness decreased to minimal. Goal to be met by: 07/03/19 Progress towards Goal:: Progressing Goal #3: Right SLR to 45-50 degrees. Goal to be met by: 07/03/19 Progress towards Goal:: Progressing Goal #4: Pt to report minimal right hip pain with sit to stand transfers. 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 good understanding of proper body mechanics/back safety. Goal to be met by: 08/02/19 Goal #2: Score on LE functional scale improved to 60/80. Goal to be met by: 08/02/19 Goal #3: Pt to sleep without interruption from right hip pain. Goal to be met by: 08/02/19 Goal #4: Pt able to perform all household and work activities without pain. Goal to be met by: 08/02/19 Plan Dates of [facility] Goals: 08/02/19 Expiration date of current Insurance Approval:: 08/02/19 PLAN: Continue modalities and progress exercise to reduce pain and increase functional activity level.
--- NOTE | 2019-06-29 16:22 | RS.OPPTDN ---
Subjective Date of Note: 06/29/19 Visit #: 4 Number of visits approved by Insurance: NA Date of Evaluation: 06/22/19 Payer Source: Insurance Treatment Diagnosis: Right hip pain Current Subjective/complaints:: Bennie states he can tell that he is walking better. 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 States since then, he has felt a little more tightness in the right hip. He continues to be off from working at [employer]. He goes back to Dr. Mcduffie for reassessment this Wednesday. Reports less tenderness with palpation over right greater trochanter. States getting up from seated position is a little better. Pain Assessment - Pain Description Pain Location: right SI region, Right greater trochanter Current Pain Intensity: 5/10 - Treatment Modality: Ultrasound Parameters/Method Applied: 10 mins pulsed @ 1.2 w/cm2 to right SI/superior-mid gluteal region and 10 mins pulsed @ 1.2 w/cm2 over right greater trochanter. Patient Position: Left Sidelying - Heat/Cryotherapy Treatment: Cryotherapy (following stretching) Interventions - Exercise/Activities/Manual Therapy Exercises/Activities: Patient received assistance with stretching HS, SKTC, and piriformis. right HS and piriformis continues to be tighter than the left. Performed isometric hip flexion on the right and then 2 sets of 10 reps of bilateral hip abduction isometrics. Total minutes of Exercise: X 17 mins Manual Therapy: NA HOME EXERCISE PROGRAM: HS stretch, isometric hip add, glut sets, pelvic tilt, modified bridging. - Charges Timed Code Treatment Minutes: 37 mins Total Treatment Time: 47 mins Procedures billed for this date of service:: US, EX Assessment: Bennie reports improving symptoms. States he is able to walk better with less pain. He continues to be tighter at the right hip compared to the left. He will benefit from continued treatment to further reduce his symptoms. Patient Education: Education of diagnosis, Body/Joint mechanics, Home Exercise Program, Education of Plan of Care Patient demonstrates compliance with HEP?: Yes Short Term Goals Goal #1: Patient independent and compliant in basic HEP. Goal to be met by: 07/03/19 Progress towards Goal:: Partially Met Goal #2: Right Greater Trochanter tenderness decreased to minimal. Goal to be met by: 07/03/19 Progress towards Goal:: Progressing Goal #3: Right SLR to 45-50 degrees. Goal to be met by: 07/03/19 Progress towards Goal:: Progressing Goal #4: Pt to report minimal right hip pain with sit to stand transfers. Goal to be met by: 07/03/19 Progress towards Goal:: Progressing Halfway Goals Goal #1: Pt to demo. good understanding of proper body mechanics/back safety. Goal to be met by: 08/02/19 Goal #2: Score on LE functional scale improved to 60/80. Goal to be met by: 08/02/19 Goal #3: Pt to sleep without interruption from right hip pain. Goal to be met by: 08/02/19 Goal #4: Pt able to perform all household and work activities without pain. Goal to be met by: 08/02/19 Progress towards goal: Progressing Plan Dates of Halfway Goals: 08/02/19 Expiration date of current Insurance Approval:: NA PLAN: Continue treatment and progress pelvis stability exercises.
--- NOTE | 2019-07-05 16:45 | RS.OPPTDN ---
Subjective Date of Note: 07/05/19 Visit #: 5 Number of visits approved by Insurance: na Date of Evaluation: 06/22/19 Payer Source: Insurance Treatment Diagnosis: Right hip pain Current Subjective/complaints:: Patient says his pain is significantly better with therapy. Reports his pain is less intense and is able to ambulate as well as get in/out bathtub better. States he is now able to lift the R LE up and over the tub with better ease. - Treatment Modality: Ultrasound Parameters/Method Applied: Pulsed @ 1.2 w/cm2 20% x 8 mins to R SI joint and lower lumbar paraspinals and then 8 mins to R greater trochanter Patient Position: Left Sidelying - Heat/Cryotherapy Treatment: Cryotherapy (over the R SI and greater trochanter after therex x 15 mins in sidelying) Interventions - Exercise/Activities/Manual Therapy Exercises/Activities: Patient received assistance with stretching HS, SKTC, and piriformis. figure 4, Right HS and piriformis continues to be tighter than the left. Performed isometric hip flexion on the right and then 2 sets of 10 reps of bilateral hip abduction isometrics. Pillow squeezes in hooklying x 10. Total minutes of Exercise: 17 Manual Therapy: NA HOME EXERCISE PROGRAM: HS stretch, isometric hip add, glut sets, pelvic tilt, modified bridging. - Charges Timed Code Treatment Minutes: 33 Total Treatment Time: 48 Procedures billed for this date of service:: cp, u/s, ex Assessment: Patient experiencing reduced R SI and hip pain allowing for increased functional activities and work duties. Improved hamstring extensibility to the R compared to recent visits (per patient self reflection). He will benefit from continued modalities and strengthening to trunk/hips. Patient Education: Education of diagnosis, Home Exercise Program Patient demonstrates compliance with HEP?: Yes Short Term Goals Goal #1: Patient independent and compliant in basic HEP. Goal to be met by: 07/03/19 Progress towards Goal:: Partially Met Goal #2: Right Greater Trochanter tenderness decreased to minimal. Goal to be met by: 07/03/19 Progress towards Goal:: Progressing Goal #3: Right SLR to 45-50 degrees. Goal to be met by: 07/03/19 Progress towards Goal:: Progressing Goal #4: Pt to report minimal right hip pain with sit to stand transfers. Goal to be met by: 07/03/19 Progress towards Goal:: Progressing Group Home Goals Goal #1: Pt to demo. good understanding of proper body mechanics/back safety. Goal to be met by: 08/02/19 Goal #2: Score on LE functional scale improved to 60/80. Goal to be met by: 08/02/19 Goal #3: Pt to sleep without interruption from right hip pain. Goal to be met by: 08/02/19 Goal #4: Pt able to perform all household and work activities without pain. Goal to be met by: 08/02/19 Progress towards goal: Progressing Plan Dates of Group Home Goals: 08/02/19 Expiration date of current Insurance Approval:: 08/02/19 PLAN: Continue for modalities and therex to reach goals established
--- NOTE | 2019-07-07 16:24 | RS.OPPTDN ---
Subjective Date of Note: 07/07/19 Visit #: 6 Number of visits approved by Insurance: na Date of Evaluation: 06/22/19 Payer Source: Insurance Treatment Diagnosis: Right hip pain Current Subjective/complaints:: Patient says he is improving day by day. States he no longer has "pain," but more "irritation" now. Reports he will be starting back at [employer] tomorrow and will only be working 5 hours. States he is trying to be aware of better body mechanics while at work and home to prevent increased symptoms. - Treatment Modality: Ultrasound Parameters/Method Applied: Pulsed @ 20% x 8 mins ea to the R SI joint and at the R greater trochanter Patient Position: Left Sidelying - Heat/Cryotherapy Treatment: Cryotherapy (R SI and over the hip x 20 mins after therex in sidelying) Interventions - Exercise/Activities/Manual Therapy Exercises/Activities: Patient received assistance with stretching HS, SKTC, and piriformis. figure 4, Right HS and piriformis continues to be tighter than the left. Patient received more time concentrating on stretches today. Total minutes of Exercise: 16 Manual Therapy: NA HOME EXERCISE PROGRAM: HS stretch, isometric hip add, glut sets, pelvic tilt, modified bridging. - Charges Timed Code Treatment Minutes: 36 Total Treatment Time: 56 Procedures billed for this date of service:: u/s, ex Assessment: Patient continues to experience improved pain and actually describes more "irritation" than pain. He is consistent with HEP and will be resuming work at second job tomorrow. Patient will attend 2 more sessions next week and will then reassess. Patient Education: Body/Joint mechanics, Home Exercise Program, Education of Plan of Care Patient demonstrates compliance with HEP?: Yes Short Term Goals Goal #1: Patient independent and compliant in basic HEP. Goal to be met by: 07/03/19 Progress towards Goal:: Partially Met Goal #2: Right Greater Trochanter tenderness decreased to minimal. Goal to be met by: 07/03/19 Progress towards Goal:: Met Goal #3: Right SLR to 45-50 degrees. Goal to be met by: 07/03/19 Progress towards Goal:: Progressing Goal #4: Pt to report minimal right hip pain with sit to stand transfers. Goal to be met by: 07/03/19 Progress towards Goal:: Progressing Skilled Nursing Goals Goal #1: Pt to demo. good understanding of proper body mechanics/back safety. Goal to be met by: 08/02/19 Goal #2: Score on LE functional scale improved to 60/80. Goal to be met by: 08/02/19 Goal #3: Pt to sleep without interruption from right hip pain. Goal to be met by: 08/02/19 Progress towards goal: Progressing Goal #4: Pt able to perform all household and work activities without pain. 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
--- NOTE | 2019-07-13 16:39 | RS.OPPTDN ---
Subjective Date of Note: 07/12/19 Visit #: 7 Number of visits approved by Insurance: na Date of Evaluation: 06/22/19 Payer Source: Insurance Treatment Diagnosis: Right hip pain Current Subjective/complaints:: Patient reports his pain has nearly resolved. He describes as an "irritation". States he did well working an evening shift at [employer] over the weekend and will work again tonight. Pain Assessment - Pain Description Pain Location: right glut and lateral hip joint Current Pain Intensity: mild - Treatment Modality: Ultrasound Parameters/Method Applied: [id number] total at 1.5w/cm2, with 7mins 20% pulsed to right lat hip joint and 7mins continuous to the right mid glut/S-I area. Patient Position: Left Sidelying - Heat/Cryotherapy Treatment: Cryotherapy (Ended with 12mins CP to the right LB and hip joint. Patient supine. ) Interventions - Exercise/Activities/Manual Therapy Exercises/Activities: Patient received assistance with stretching HS, SKTC, and piriformis. Also figure 4 hip stretch. Isometric hip add. Pelvic tilt. Modified bridging x2reps. Total minutes of Exercise: 20mins Manual Therapy: NA HOME EXERCISE PROGRAM: HS stretch, isometric hip add, glut sets, pelvic tilt, modified bridging. - Charges Timed Code Treatment Minutes: 34mins Total Treatment Time: 40mins Procedures billed for this date of service:: US, EX Assessment: Pt consistently reporting improvement in pain and ability with functional mobility at home and work. Patient Education: Body/Joint mechanics, Home Exercise Program, Activity Modification Patient demonstrates compliance with HEP?: Yes Short Term Goals Goal #1: Patient independent and compliant in basic HEP. Goal to be met by: 07/03/19 Progress towards Goal:: Met Goal #2: Right Greater Trochanter tenderness decreased to minimal. Goal to be met by: 07/03/19 Progress towards Goal:: Met Goal #3: Right SLR to 45-50 degrees. Goal to be met by: 07/03/19 Progress towards Goal:: Progressing Goal #4: Pt to report minimal right hip pain with sit to stand transfers. Goal to be met by: 07/03/19 Progress towards Goal:: Progressing Senior Living Goals Goal #1: Pt to demo. good understanding of proper body mechanics/back safety. Goal to be met by: 08/02/19 Goal #2: Score on LE functional scale improved to 60/80. Goal to be met by: 08/02/19 Goal #3: Pt to sleep without interruption from right hip pain. Goal to be met by: 08/02/19 Progress towards goal: Progressing Goal #4: Pt able to perform all household and work activities without pain. Goal to be met by: 08/02/19 Progress towards goal: Progressing Plan Dates of Senior Living Goals: 08/02/19 Expiration date of current Insurance Approval:: 08/02/19 PLAN: Conitnue progression of exercise to reduce pain and return patient to PLOF.
--- NOTE | 2019-07-14 16:50 | RS.OPPTDN ---
Subjective Date of Note: 07/14/19 Visit #: 8 Number of visits approved by Insurance: NA Date of Evaluation: 06/22/19 Payer Source: Insurance Treatment Diagnosis: Right hip pain Current Subjective/complaints:: Bennie states he cannot believe how much better his pain is. States he was hurting last night after working at [employer] the night before. He states the treatment we are doing is helping a great deal. States he has not taken pain medication in the last 2-3 days. Pain Assessment - Pain Description Worst Pain Intensity: min discomfort - Treatment Modality: Ultrasound Parameters/Method Applied: [id number] total at 1.5w/cm2, with 8mins 20% pulsed to right lat hip joint and 7mins continuous to the right mid glut/S-I area. Patient Position: Left Sidelying - Heat/Cryotherapy Treatment: Cryotherapy (X 15 mins to low back following ultrasound and exercise) Interventions - Exercise/Activities/Manual Therapy Exercises/Activities: Patient received assistance with stretching HS, SKTC, and piriformis. Also figure 4 hip stretch and lower trunk rotation. Total minutes of Exercise: X 19 mins Manual Therapy: NA HOME EXERCISE PROGRAM: HS stretch, isometric hip add, glut sets, pelvic tilt, modified bridging. - Charges Timed Code Treatment Minutes: 34 mins Total Treatment Time: 34 mins Procedures billed for this date of service:: US, EX Assessment: Bennie reports feeling much better. He did have pain last night. States treatment is helping. We discussed seeing him again next week to see how he does over the weekend. Patient Education: Education of diagnosis, Body/Joint mechanics, Education of Plan of Care Patient demonstrates compliance with HEP?: Yes Short Term Goals Goal #1: Patient independent and compliant in basic HEP. Goal to be met by: 07/03/19 Progress towards Goal:: Met Goal #2: Right Greater Trochanter tenderness decreased to minimal. Goal to be met by: 07/03/19 Progress towards Goal:: Met Goal #3: Right SLR to 45-50 degrees. Goal to be met by: 07/03/19 Progress towards Goal:: Met Goal #4: Pt to report minimal right hip pain with sit to stand transfers. Goal to be met by: 07/03/19 Progress towards Goal:: Progressing Intermediate Goals Goal #1: Pt to demo. good understanding of proper body mechanics/back safety. Goal to be met by: 08/02/19 Goal #2: Score on LE functional scale improved to 60/80. Goal to be met by: 08/02/19 Goal #3: Pt to sleep without interruption from right hip pain. Goal to be met by: 08/02/19 Progress towards goal: Progressing Goal #4: Pt able to perform all household and work activities without pain. Goal to be met by: 08/02/19 Progress towards goal: Progressing Plan Dates of Plating Engineer Goals: 08/02/19 Expiration date of current Insurance Approval:: NA PLAN: Continue treatment and Educate in back safety and body mechanics.
== END 2019-07-22 23:59 ==
PROVIDERS: ATTEND Family Medicine
DX: M25.551 Pain in right hip (principal)